=== PATIENT | male | born 1945 | race Caucasian/White ===

== ENCOUNTER 2016-09-24 09:25 | Day surgery (SDC) | payer MEDICARE, BC ==
[~2016-09-24 09:25] MED LIST: CALCIUM ACETAT667 M3 PO; CLOBETASOL EMOL15 GM TP; COLACE100 M1 PO; LIDODERM1 EACH TOP; TYLENOL EXTRA500 M1 PO; VIBRAMYCIN100 M1 PO; VITAMIN D31000 UNI3 PO; ZOFRAN4 M2 PO
[2016-09-24 10:38] LABS: BASO % 0.8 % (0-2); BASO ABSOLUTE COUNT 0.1 tho/cmm (0.0-0.2); EOS % 7.3 % (0-7); EOSINOPHIL ABSOLUTE COUNT 0.6 tho/cmm (0.0-0.7); HCT-HEMATOCRIT 32.2 % (36.0-53.5); HGB-HEMOGLOBIN 9.9 gm/dl (13.5-17.0); IMMATURE GRANULOCYTES ABSOLUTE 0.02 tho/cmm (0-0.03); IMMATURE GRANULOCYTES PERCENT 0.3 % (0-0.3); LYMPH % 14.3 % (20-45); LYMPH ABSOLUTE COUNT 1.1 tho/cmm (0.8-4.5); MCH (MEAN CORPUSCULAR HGB) 30.4 pg (28.0-32.0); MCHC MEAN CORPUSCULAR HGB CONC 30.7 % (32.0-36.0); MCV (MEAN CELL VOLUME) 98.8 fl (82.0-96.0); MEAN PLATELET VOLUME 9.9 cmc (9.4-12.4); MONO % 9.5 % (0-12); MONOCYTE ABSOLUTE COUNT 0.7 tho/cmm (0.0-1.2); NEUTROPHIL ABSOLUTE COUNT 5.1 tho/cmm (1.6-8.0); NEUTROPHIL-AUTOMATED 5.1 tho/cmm (1.6-8.0); NEUTROPHILS % 67.8 % (40-80); PLATELET COUNT 312 tho/cmm (150-450); RED BLOOD COUNT 3.26 mil/cmm (4.40-5.70); RED CELL DISTRIBUTION WIDTH 14.6 % (12.4-16.4); WHITE BLOOD COUNT 7.6 tho/cmm (4.0-10.0)
[2016-09-24 10:40] LABS: INR 1.1 INR (0.9-1.1); PROTHROMBIN TIME 12.4 SECONDS (9.0-13.6)
[2016-10-15] MEDS ORDERED: LEVAQUIN500 M1 PO (15:33)
[2016-10-15] MEDS ORDERED: ZYRTEC1010 PO (15:34)
[2016-10-15] MEDS ORDERED: XANAX0.25 M1 PO (15:34)
[2016-10-15] MEDS ORDERED: TYLENOL ARTHRI650 M1 PO (15:35)
[2016-10-16] MEDS ORDERED: *OXYGEN (14:56)
[2016-11-14] MEDS ORDERED: NEURONTIN100 M1 PO (09:53)
[2016-11-14] MEDS ORDERED: BENADRYL25 M3 PO (10:02)
[2016-11-14] MEDS ORDERED: ATIVAN0.5 M1 PO (10:03)
[2016-12-31] MEDS ORDERED: METOPROLOL TART25 M1 PO (11:28)
[2016-12-31] MEDS ORDERED: COLACE100 M1 PO (11:29)
[2016-12-31] MEDS ORDERED: PACERONE200 M1 PO (11:29)
[2016-12-31] MEDS ORDERED: DOXEPIN HCL10 M1 PO (11:29)
== END 2016-09-24 16:40 ==
LOC: US 09:25 → SHSC 09:29
PROVIDERS: Radiology Diagnostic Radiology
PROC: 0W993ZZ Drainage of Right Pleural Cavity, Percutaneous Approach (ICD-10-PCS; principal; 2016-09-24)
DX: J90 Pleural effusion, not elsewhere classified (principal); J44.9 Chronic obstructive pulmonary disease, unspecified; J95.811 Postprocedural pneumothorax; N18.6 End stage renal disease; I25.10 Atherosclerotic heart disease of native coronary artery without angina pectoris; Z88.0 Allergy status to penicillin; Z88.8 Allergy status to other drugs, medicaments and biological substances; Z79.899 Other long term (current) drug therapy; Z98.890 Other specified postprocedural states
CPT/HCPCS: J2250; J3010; J7030

== ENCOUNTER 2016-10-01 09:54 | Day surgery (SDC) | payer MEDICARE, BC ==
[2016-10-01 10:49] LABS: BASO % 0.2 % (0-2); EOS % 9.5 % (0-7); EOSINOPHIL ABSOLUTE COUNT 0.8 tho/cmm (0.0-0.7); HCT-HEMATOCRIT 34.5 % (36.0-53.5); HGB-HEMOGLOBIN 10.6 gm/dl (13.5-17.0); IMMATURE GRANULOCYTES ABSOLUTE 0.02 tho/cmm (0-0.03); IMMATURE GRANULOCYTES PERCENT 0.2 % (0-0.3); LYMPH % 11.3 % (20-45); LYMPH ABSOLUTE COUNT 0.9 tho/cmm (0.8-4.5); MCH (MEAN CORPUSCULAR HGB) 30.4 pg (28.0-32.0); MCHC MEAN CORPUSCULAR HGB CONC 30.7 % (32.0-36.0); MCV (MEAN CELL VOLUME) 98.9 fl (82.0-96.0); MEAN PLATELET VOLUME 9.8 cmc (9.4-12.4); MONO % 5.8 % (0-12); MONOCYTE ABSOLUTE COUNT 0.5 tho/cmm (0.0-1.2); PLATELET COUNT 303 tho/cmm (150-450); RED BLOOD COUNT 3.49 mil/cmm (4.40-5.70); RED CELL DISTRIBUTION WIDTH 14.6 % (12.4-16.4); WHITE BLOOD COUNT 8.2 tho/cmm (4.0-10.0)
[2016-10-01 10:53] LABS: INR 1.1 INR (0.9-1.1); PROTHROMBIN TIME 12.3 SECONDS (9.0-13.6)
[2016-10-15] MEDS ORDERED: LEVAQUIN500 M1 PO (15:33)
[2016-10-15] MEDS ORDERED: XANAX0.25 M1 PO (15:34)
[2016-10-15] MEDS ORDERED: ZYRTEC1010 PO (15:34)
[2016-10-15] MEDS ORDERED: TYLENOL ARTHRI650 M1 PO (15:35)
[2016-10-16] MEDS ORDERED: *OXYGEN (14:56)
[2016-11-14] MEDS ORDERED: NEURONTIN100 M1 PO (09:53)
[2016-11-14] MEDS ORDERED: BENADRYL25 M3 PO (10:02)
[2016-11-14] MEDS ORDERED: ATIVAN0.5 M1 PO (10:03)
[2016-12-31] MEDS ORDERED: METOPROLOL TART25 M1 PO (11:28)
[2016-12-31] MEDS ORDERED: PACERONE200 M1 PO (11:29)
[2016-12-31] MEDS ORDERED: DOXEPIN HCL10 M1 PO (11:29)
[2016-12-31] MEDS ORDERED: COLACE100 M1 PO (11:29)
== END 2016-10-01 16:30 ==
LOC: US 09:54 → SHSB 09:57
PROVIDERS: Radiology Diagnostic Radiology
PROC: 0W9B3ZZ Drainage of Left Pleural Cavity, Percutaneous Approach (ICD-10-PCS; principal; 2016-10-01)
DX: J90 Pleural effusion, not elsewhere classified (principal); J93.9 Pneumothorax, unspecified; Z88.0 Allergy status to penicillin; N18.6 End stage renal disease; Z88.8 Allergy status to other drugs, medicaments and biological substances; Z79.899 Other long term (current) drug therapy; Z79.2 Long term (current) use of antibiotics; Z99.2 Dependence on renal dialysis
CPT/HCPCS: J3010; J7030

== ENCOUNTER 2016-10-17 10:33 | Day surgery (SDC) | payer MEDICARE, BC ==
[~2016-10-17 10:33] MED LIST changes: +*OXYGEN; +LEVAQUIN500 M1 PO; +TYLENOL ARTHRI650 M1 PO; +XANAX0.25 M1 PO; +ZYRTEC1010 PO
[2016-10-17 11:34] LABS: HGB-HEMOGLOBIN 10.4 gm/dl (13.5-17.0); MCHC MEAN CORPUSCULAR HGB CONC 30.6 % (32.0-36.0); MEAN PLATELET VOLUME 9.3 cmc (9.4-12.4); NEUTROPHIL-AUTOMATED 3.9 tho/cmm (1.6-8.0); PLATELET COUNT 301 tho/cmm (150-450); RED BLOOD COUNT 3.47 mil/cmm (4.40-5.70); RED CELL DISTRIBUTION WIDTH 15.3 % (12.4-16.4); WHITE BLOOD COUNT 8.2 tho/cmm (4.0-10.0)
[2016-10-17 11:36] LABS: INR 1.1 INR (0.9-1.1); PROTHROMBIN TIME 12.5 SECONDS (9.0-13.6)
[2016-10-17 11:43] LABS: ANION GAP 12 mmol/L (0-20); BLOOD UREA NITROGEN 27 mg/dl (6-24); CALCIUM 8.4 mg/dl (8.5-10.5); CARBON DIOXIDE-VENOUS 33 mmol/L (22-32); CHLORIDE 104 mmol/l (96-110); CREATININE 4.57 mg/dl (0.60-1.30); GLUCOSE 82 mg/dL (70-110); POTASSIUM 4.6 mmol/L (3.7-5.1); SODIUM 144 mmol/L (135-145); eGFR VALUE FOR BLACK 14 mL/Min
[2016-10-17 12:11] LABS: BASOPHIL % 1 % (0-2); BASOPHIL ABSOLUTE COUNT 0.1 tho/cmm (0.0-0.2); EOSINOPHIL % 29 % (0-7)
[2016-11-14] MEDS ORDERED: NEURONTIN100 M1 PO (09:53)
[2016-11-14] MEDS ORDERED: BENADRYL25 M3 PO (10:02)
[2016-11-14] MEDS ORDERED: ATIVAN0.5 M1 PO (10:03)
[2016-12-31] MEDS ORDERED: METOPROLOL TART25 M1 PO (11:28)
[2016-12-31] MEDS ORDERED: DOXEPIN HCL10 M1 PO (11:29)
[2016-12-31] MEDS ORDERED: PACERONE200 M1 PO (11:29)
[2016-12-31] MEDS ORDERED: COLACE100 M1 PO (11:29)
== END 2016-10-17 16:10 ==
LOC: SHSC 10:33
PROVIDERS: Anesthesiology; Radiology Diagnostic Radiology
PROC: 0QS03ZZ Reposition Lumbar Vertebra, Percutaneous Approach (ICD-10-PCS; principal; 2016-10-17)
PROC: 0QU03JZ Supplement Lumbar Vertebra with Synthetic Substitute, Percutaneous Approach (ICD-10-PCS; 2016-10-17)
DX: S32.019A Unspecified fracture of first lumbar vertebra, initial encounter for closed fracture (principal); S32.049A Unspecified fracture of fourth lumbar vertebra, initial encounter for closed fracture; I12.0 Hypertensive chronic kidney disease with stage 5 chronic kidney disease or end stage renal disease; N18.6 End stage renal disease; Z88.0 Allergy status to penicillin; Z88.8 Allergy status to other drugs, medicaments and biological substances; Z98.890 Other specified postprocedural states; Z79.899 Other long term (current) drug therapy; Z87.891 Personal history of nicotine dependence; M19.90 Unspecified osteoarthritis, unspecified site
CPT/HCPCS: J7030; Q9967

== ENCOUNTER 2016-11-17 07:13 | Day surgery (SDC) | payer MEDICARE, BC ==
[~2016-11-17 07:13] MED LIST changes: +ATIVAN0.5 M1 PO; +BENADRYL25 M3 PO; +NEURONTIN100 M1 PO
[2016-12-31] MEDS ORDERED: METOPROLOL TART25 M1 PO (11:28)
[2016-12-31] MEDS ORDERED: COLACE100 M1 PO (11:29)
[2016-12-31] MEDS ORDERED: PACERONE200 M1 PO (11:29)
[2016-12-31] MEDS ORDERED: DOXEPIN HCL10 M1 PO (11:29)
== END 2016-11-17 10:25 ==
LOC: RADSP 07:13 → SHSB 07:17
PROC: B51WYZZ Fluoroscopy of Dialysis Shunt/Fistula using Other Contrast (ICD-10-PCS; principal; 2016-11-17)
PROC: 05783ZZ Dilation of Left Axillary Vein, Percutaneous Approach (ICD-10-PCS; 2016-11-17)
DX: T82.858A Stenosis of other vascular prosthetic devices, implants and grafts, initial encounter (principal); I12.0 Hypertensive chronic kidney disease with stage 5 chronic kidney disease or end stage renal disease; N18.6 End stage renal disease; Z79.899 Other long term (current) drug therapy; Z88.0 Allergy status to penicillin; Z88.8 Allergy status to other drugs, medicaments and biological substances; Z87.891 Personal history of nicotine dependence; Z90.49 Acquired absence of other specified parts of digestive tract; Z90.89 Acquired absence of other organs; Z98.52 Vasectomy status; Z98.890 Other specified postprocedural states; Z99.2 Dependence on renal dialysis
CPT/HCPCS: C1725; C1769; J2250; J3010; Q9967